=== PATIENT | female | born 1940 | race Caucasian/White ===

== ENCOUNTER → 2023-06-06 08:59 | Outpatient (REF) | payer OTHER, SELFPAY | LOC: RAD 08:59 | PROVIDERS: ATTENDING PHYSICIAN Family Medicine; OTHER PHYSICIAN Orthopaedic Surgery | DX: M81.0 Age-related osteoporosis without current pathological fracture (principal) | CPT/HCPCS: 77080 ==

== ENCOUNTER 2023-11-15 11:23 | Emergency (ER) | payer OTHER, SELFPAY ==
[2023-11-15 11:25] VITALS: BP 189/79
--- NOTE | 2023-11-15 12:00 | ED.GENMED ---
History of Present Illness
<FABIOLA Thurman - Last Filed: 11/16/23 12:23>
General
Chief Complaint: Fall
Source: patient and spouse
Exam Limitations: none
Time Seen by Provider: 11/15/23 11:39
Nursing documentation reviewed up to this point in time: agreed with
History of Present Illness
History of Present Illness:
Patient is an 82-year-old female that was brought in by for evaluation after fall. Patient reports she accidentally fell down 11 [address]ed steps. She did hit her head several times on the carpeted steps. She denies loss of consciousness.
Denies headache. She complains of right lateral posterior rib pain. She denies any pain with deep breath. She denies any abdominal pain nausea vomiting. She denies any neck pain. She denies any shortness of breath. She is not on blood
thinners. She denies any upper or lower extremity pain or injury.
Past History
<FABIOLA Thurman - Last Filed: 11/16/23 12:23>
Past History
ED Past Medical History: Cancer (Melanoma), HTN, Hypothyroidism and Other (SBO)
ED Past Surgical History: Appendectomy, Gynecological and Other (partial colectomy)
Social History
Tobacco: Non-smoker
Alcohol: None
Drug: None
Personal:
Living: with family
Employment: Not employed
Review of Systems
<FABIOLA Thurman - Last Filed: 11/16/23 12:23>
Review of Systems
Allergies reviewed?: Yes
All Other Systems: ROS reviewed and negative except as documented in HPI and ROS
Constitutional: Reports no symptoms
Respiratory: Reports other (right lateral /posterior rib pain ); Denies trouble breathing
Cardiac: Reports no symptoms; Denies syncope
ABD/GI: Reports no symptoms; Denies abdominal pain, nausea or vomiting
: Reports no symptoms
Musculoskeletal: Denies neck pain or back pain
Skin: Reports no symptoms
Neurological: Reports no symptoms; Denies dizzy or headache
Phy Exam
<FABIOLA Thurman - Last Filed: 11/16/23 12:23>
General Physical Exam
General Presentation: no apparent distress
General age: appears stated age
General Skin: warm and dry
General Habitus: elderly
General Mental: alert
General Hydration: appears well hydrated
Cardiovascular Exam
Cardiovascular Exam: regular rate/rhythm, no murmur and normal peripheral pulses
Pulmonary Exam
Pulmonary Exam: lungs clear, no respiratory distress and other (Normal inspection to chest and ribs tender to right posterior lateral right mid-upper rib region ; no crepitus no ecchymosis )
Gastrointestinal Exam
Gastrointestinal Exam: normal bowel sounds, non tender and soft
Neurological Exam
Neurological Exam: alert and oriented x3
Musculoskeletal Exam
Musculoskeletal Exam: full ROM and other (No obvious head injury on exam cervical collar in place removed on exam no bony midline tenderness)
Skin Exam
Skin Exam: normal color and warm/dry
Psychiatric Exam
Psychiatric Exam: normal mood/affect
Course
<FABIOLA Thurman - Last Filed: 11/16/23 12:23>
Orders/Labs/Results
Orders:
Orders
11/15/23 12:02
CT Head W/o Iv Contrast Urgent
Comment:
Reason For Exam: trauma
11/15/23 12:09
Ribs, Right 3 View W/PA Chest [CR Ribs-right 3 Vw W/pa Chest*] Urgent
Comment:
Reason For Exam: trauma
11/15/23 14:26
Lidocaine [Lidocaine 4% Patch] 1 patch TOPICAL NOW STA
Apply Lidocaine patch(s) to:: right rib
Vital Signs
Initial and Last Documented VS:
Initial Vital Signs
Temp Pulse Resp BP Pulse Ox
97.8 F 70 18 189/79 100
11/15/23 11:25 11/15/23 11:25 11/15/23 11:25 11/15/23 11:25 11/15/23 11:25
Last Documented Vital Signs
Temp Pulse Resp BP Pulse Ox
97.8 F 67 18 159/73 98
11/15/23 11:25 11/15/23 14:31 11/15/23 14:31 11/15/23 14:31 11/15/23 14:31
<Aleyda Bo MD - Last Filed: 11/15/23 12:15>
Orders/Labs/Results
Orders:
Orders
11/15/23 12:02
CT Head W/o Iv Contrast Urgent
Comment:
Reason For Exam: trauma
11/15/23 12:09
Ribs, Right 3 View W/PA Chest [CR Ribs-right 3 Vw W/pa Chest*] Urgent
Comment:
Reason For Exam: trauma
11/15/23 14:26
Lidocaine [Lidocaine 4% Patch] 1 patch TOPICAL NOW STA
Apply Lidocaine patch(s) to:: right rib
Vital Signs
Initial and Last Documented VS:
Initial Vital Signs
Temp Pulse Resp BP Pulse Ox
97.8 F 70 18 189/79 100
11/15/23 11:25 11/15/23 11:25 11/15/23 11:25 11/15/23 11:25 11/15/23 11:25
Last Documented Vital Signs
Temp Pulse Resp BP Pulse Ox
97.8 F 67 18 159/73 98
11/15/23 11:25 11/15/23 14:31 11/15/23 14:31 11/15/23 14:31 11/15/23 14:31
<FABIOLA Thurman - Last Filed: 11/16/23 12:23>
MDM/Problems Addressed
Differential Diagnosis Includes:
Not limited to head injury, rib fracture versus chest contusion
MDM/Problems Addressed:
Patient is an 82-year-old female who fell down 11 carpeted steps hitting her head. She presented to the ER complaining of right lateral rib pain. No headache no loss of consciousness no blood thinners no neck pain. On exam patient is in no acute
distress has not wanted anything for pain no obvious deformity on exam no abrasions or lacerations to chest mildly tender to right lateral rib area. Patient examined by ED physician CT head performed and negative the no obvious head injury. Rib
series shows possible fracture seventh rib which is likely based on clinical findings. She wishes to only take Tylenol Motrin will also DC with lidocaine patch and close outpatient follow-up with .
<FABIOLA Thurman - Last Filed: 11/16/23 12:23>
*Critical Care Note
Total Time (30-74mins, 75-104mins- exclusive of procedures): Not Applicable
ED Attending Note
<FABIOLA Thurman - Last Filed: 11/16/23 12:23>
-
Portions of this chart may have been created with voice recognition software.� Occasional wrong word or��sound alike� substitutions may have occurred due to the inherent limitations of voice recognition software.
<Aleyda Bo MD - Last Filed: 11/15/23 12:15>
ED Attending Note
Patient seen and examined by attending physician: Yes
I performed the substantive portion of visit, reviewed & personally made and approve the management plan that is documented in note by myself or CHARITO.: Yes
ED Attending Note:
Patient appears awake, alert and conversational. She is in no acute respiratory distress. Her head appears atraumatic, however, she does report she hit her head. Her C-spine is nontender throughout. She has excellent strength of bilateral upper
and lower extremities. Patient has mild reproducible right lateral chest wall tenderness. She has no abdominal tenderness throughout. Her abdomen is soft throughout and nondistended. Patient is breathing comfortably.
Discharge Plan
Departure
Patient Disposition: Home (Routine Discharge)
Date of Disposition: 11/15/23
Time of Disposition: 14:28
Patient with high blood pressure during this ER visit?: Yes
Covid-19: Not Applicable
Discharge Problem:
Fracture of rib
Instructions: Rib fractures in adults, BLOOD PRESSURE
Prescriptions:
New
lidocaine 5 % adhesive patch,medicated
1 patch topical DAILY Qty: 15 0RF
Rx Instructions:
remove after 12 hrs
No Action
levothyroxine 100 mcg Tablet
100 mcg PO DAILY
rosuvastatin 5 mg Tablet
5 mg PO DAILY
omega 0-ula-pon-fish oil [Fish Oil] 1,000 mg (120 mg-180 mg) Capsule
2 cap PO DAILY
Centrum Silver Women 8 mg iron-400 mcg-50 mcg Tablet
1 tab PO DAILY
Caltrate 600-D Plus Minerals 600 mg calcium- 800 unit-40 mg Tablet,Chewable
2 tab PO DAILY
biotin 1,000 mcg Tablet,Chewable
1,000 mcg PO DAILY
oxycodone 5 mg tablet
5 - 10 mg PO Q6H PRN (Reason: moderate-severe pain) Qty: 20 0RF
Rx Instructions:
1 tab for moderate pain, 2 if severe.
Dx total joint.
celecoxib [Celebrex] 200 mg capsule
200 mg PO DAILY Qty: 14 0RF
Rx Instructions:
Take with food.
DO NOT take within 2 hours of Aspirin.
famotidine [Pepcid] 20 mg tablet
20 mg PO HS Qty: 30 0RF
Rx Instructions:
Take nightly while on Celebrex and Aspirin to avoid GI upset.
ondansetron HCl 4 mg tablet
4 mg PO Q6H PRN (Reason: nausea and vomiting) Qty: 30 0RF
aspirin 325 mg tablet
325 mg PO DAILY Qty: 30 0RF
Rx Instructions:
Take daily x4 weeks for blood clot prevention; then resume Aspirin 81 mg daily.
docusate sodium [Colace] 100 mg capsule
100 mg PO BID Qty: 30 0RF
sennosides [senna] 8.6 mg tablet
17.2 mg PO BID Qty: 30 0RF
acetaminophen 500 mg Tablet
1,000 mg PO Q6H Qty: 0 0RF
Rx Instructions:
DO NOT exceed >4000 mg daily.
Referrals:
Mark Vickers MD [Family Provider] -
Activity Restrictions/Additional Instructions:
As discussed you may also alternate between Tylenol and ibuprofen. Apply lidocaine patches as directed daily remove after 12 hours. Closely follow-up with your family doctor in the next several days for reevaluation .
return if any worsening of symptoms
Interventions
Interventions:
*Risk Screen - Suicide Last Done: 11/15/23 11:25
*General Assessment Last Done: 11/15/23 11:25
*Neglect/Abuse Screening Last Done: 11/15/23 11:28
*Nursing Disposition Last Done: 11/15/23 15:00
ED-Musculoskeletal Assessment Last Done: 11/15/23 12:43
ED- Neurological Assessment Last Done: 11/15/23 12:43
ED-Skin Assessment Last Done: 11/15/23 12:43
Discharge Date and Time
Discharge Date/Time: 11/15/23 15:00
Print Language: SWEDISH
[2023-11-15 12:42] VITALS: BP 175/72; BMI 22.9
[2023-11-15 13:03] VITALS: BP 151/70
[2023-11-15 13:33] VITALS: BP 155/73
[2023-11-15 14:00] VITALS: BP 159/73
[2023-11-15 14:31] VITALS: BP 159/73
[2023-11-15] MEDS: LIDOCAINE 4% PATCH 1 PATCH TOPICAL (14:47)
== END 2023-11-15 15:00 | disposition home or self-care (01) ==
LOC: EMR 11:23
PROVIDERS: EMERGENCY PHYSICIAN Emergency Medicine; FAMILY PHYSICIAN Family Medicine
DX: S22.39XA Fracture of one rib, unspecified side, initial encounter for closed fracture (principal); S00.03XA Contusion of scalp, initial encounter; X58.XXXA Exposure to other specified factors, initial encounter; R07.81 Pleurodynia; I10 Essential (primary) hypertension; E03.9 Hypothyroidism, unspecified; Z85.820 Personal history of malignant melanoma of skin; Z90.49 Acquired absence of other specified parts of digestive tract
CPT/HCPCS: 99284; 70450; 71101

== ENCOUNTER → 2024-12-01 11:50 | Outpatient (REF) | payer OTHER, SELFPAY ==
[2024-12-01 12:36] LABS: Hematocrit 35.5 % (37.0-47.0); Hemoglobin 12.1 g/dL (12.0-16.0); Mean Corp Hgb Conc. 34.1 g/dL (33.0-37.0); Mean Corpuscular Volume 87.2 fL (81.0-99.0); Nucleated Red Blood Cells % 0 %; Platelet Count 234 10^3/uL (130-400); Red Cell Dist. Width 12.8 % (11.5-14.5)
[2024-12-01 12:54] LABS: ALT (SGPT) 16 U/L (0-35); AST (SGOT) 21 U/L (14-36); Albumin 4.3 g/dl (3.5-5.0); Alkaline Phosphatase 61 U/L (38-126); Blood Urea Nitrogen 13 mg/dl (7-17); Calcium 9.5 mg/dl (8.4-10.2); Carbon Dioxide 25 mmol/L (22-30); Chloride 100 mmol/L (98-107); Glucose 80 mg/dl (70-99); HDL Cholesterol 65 mg/dl; Iron 99 ug/dl (37-170); LDL Cholesterol, Calculated 78 mg/dl; Potassium 4.3 mmol/L (3.5-5.1); Sodium 130 mmol/L (135-145); Total Protein 6.5 g/dl (6.3-8.2); Very Low Density Lipoprotein 16 mg/dl (0-30); eGFR > 60.00
[2024-12-01 13:03] LABS: Total Iron Binding Capacity 296 ug/dl (265-497)
[2024-12-01 13:24] LABS: TSH 2.88 uIU/ml (0.47-4.68)
== END ==
LOC: OLABPV 11:50
PROVIDERS: ATTENDING PHYSICIAN Family Medicine
DX: E78.2 Mixed hyperlipidemia (principal); E03.9 Hypothyroidism, unspecified; E61.1 Iron deficiency
CPT/HCPCS: 36415; 80053; 80061; 83540; 83550; 84439; 84443; 85025